=== PATIENT | female | born 1945 | race Caucasian/White ===

== ENCOUNTER 2025-01-24 17:58 | Emergency (ER) | payer OTHER ==
[~2025-01-24] VITALS: Ht 157.5 cm; Wt 64.0 kg
[2025-01-24 18:01] VITALS: TEMP 97.8
[2025-01-24 18:24] LABS: PLATELET COUNT (AUTO) 254 K/uL (150-450); RED BLOOD CELL COUNT(AUTO) 2.47 MIL/uL (4.0-5.2); RED CELL DISTRIBUTION WIDTH 16.1 % (11.5-15.0); WHITE BLOOD COUNT (AUTO) 6.8 K/uL (4.3-11.0)
[2025-01-24 18:32] LABS: CALCIUM, SERUM 8.8 mg/dL (8.5-10.1); CREATININE 1.8 mg/dL (0.6-1.3); SODIUM SERUM 144 mmol/L (136-145); UREA NITROGEN, BLOOD 39 mg/dL (7-18)
[2025-01-24 18:35] LABS: INR 1.25 (0.91-1.10)
[2025-01-24 18:44] LABS: ASPARTATE AMINOTRANSFERASE 25 U/L (15-37); NT-PRO BNP 5255 pg/mL (0-125); TOTAL PROTEIN, SERUM 6.7 g/dL (6.4-8.2)
[2025-01-24] MEDS ORDERED: SIMV-46 PO (18:57)
[2025-01-24] MEDS ORDERED: MELA5TAB PO (18:57)
[2025-01-24] MEDS ORDERED: METF-440 PO (18:57)
[2025-01-24] MEDS ORDERED: VALA500T40 PO (18:57)
[2025-01-24] MEDS ORDERED: LYSI500T11 PO (18:57)
[2025-01-24] MEDS ORDERED: PROP40TA7 PO (18:57)
[2025-01-24] MEDS ORDERED: FURO-145 PO (18:57)
[2025-01-24] MEDS: IV NS 0.9% 1,000 ML BAG IV ONE (19:15)
[2025-01-24] MEDS: METOPROLOL TARTRATE INJ 5 MG/5 ML AMPUL IV ONE (19:38)
[2025-01-24] MEDS: METOPROLOL TARTRATE 25 MG TABLET PO ONE (19:55)
[2025-01-24] MEDS: ASPIRIN 325 MG TABLET PO ONE (19:55)
[2025-01-24 19:57] VITALS: BP 137/79; O2SAT 99
[2025-01-24] MEDS ORDERED: ONDANSETRON HCL/PF 4 MG/2 ML VIAL ONE (21:53)
[2025-01-24] MEDS: ONDANSETRON HCL/PF - ER 4 MG/2 ML VIAL IV ONE (21:55)
== END 2025-01-24 21:59 | disposition short-term general hospital (02) ==
LOC: ER 18:05
DX: R53.1 Weakness (principal); I10 Essential (primary) hypertension; R06.02 Shortness of breath; I48.91 Unspecified atrial fibrillation; Z79.624 Long term (current) use of inhibitors of nucleotide synthesis; Z79.84 Long term (current) use of oral hypoglycemic drugs; Z79.899 Other long term (current) drug therapy; Z60.2 Problems related to living alone; Z20.822 Contact with and (suspected) exposure to COVID-19
CPT/HCPCS: 99291; 96374; 71045; 96361; 96375; 87426; 93005 ×3; 87804 ×2; 72170; 85025; 80048; 82550; 80076; 36415; 84484 ×2; 85730; 86850 ×2; 83880; 82962; J3490; J2405 ×2; J7030